=== PATIENT | female | born 1985 | race Caucasian/White ===

== ENCOUNTER 2018-09-28 16:44 | Outpatient (CLI) | payer BC, OTHER ==
--- NOTE | 2018-09-28 17:48 | Non Stress Test Report ---
Non Stress Test Datetime Report Generated by CPN: 09/28/2018 17:48 DEMOGRAPHIC EGA NST: 35.6 INDICATION Indication for Study: Chronic Hypertension MONITORING Monitor Explained: Monitor Explained; Test Explained Time on Monitor: 09/28/2018 16:54 Time off Monitor: 09/28/2018 17:28 NST Duration: 34 NST INTERVENTIONS NST Interventions: PO Hydration Physician Notified NST: Dr. Rosario BABY A: [id number] BABY A Movement : Present Contraction Frequency : None FHR Baseline : 140 Accelerations : 15X15 Decelerations : None Variability : Moderate 6-25bpm NST Review: Meets Criteria for Reactive NST NST Review and Verified By : Clementina Ward RNC NST Results: Reactive NST REPORT Report Trigger: Send Report
== END 2018-09-28 17:35 | disposition home or self-care (01) ==
LOC: LC 16:44
PROVIDERS: ATTEND Obstetrics & Gynecology Gynecology
PROC: 4A1HXCZ Monitoring of Products of Conception, Cardiac Rate, External Approach (ICD-10-PCS; principal; 2018-09-28)
DX: O10.913 Unspecified pre-existing hypertension complicating pregnancy, third trimester (principal); Z3A.35 35 weeks gestation of pregnancy
CPT/HCPCS: 59025

== ENCOUNTER 2018-10-05 15:19 | Inpatient (IN) | payer BC, OTHER ==
--- NOTE | 2018-10-05 15:26 | Non Stress Test Report ---
Non Stress Test Datetime Report Generated by CPN: 10/05/2018 15:26 DEMOGRAPHIC EGA NST: 35.6 INDICATION Indication for Study: Chronic Hypertension MONITORING Monitor Explained: Monitor Explained; Test Explained; Patient Verbalized Understanding Time on Monitor: 09/28/2018 16:54 Time off Monitor: 09/28/2018 17:28 NST Duration: 34 NST INTERVENTIONS NST Interventions: PO Hydration Physician Notified NST: Dr Rosario BABY A: [id number] BABY A Movement : Present Contraction Frequency : denies FHR Baseline : 140 Variability : Moderate 6-25bpm NST Review: Meets Criteria for Reactive NST NST Review and Verified By : B Baidy RN NST Results: Reactive NST REPORT Report Trigger: Send Report
--- NOTE | 2018-10-05 16:25 | Non Stress Test Report ---
Non Stress Test Datetime Report Generated by CPN: 10/05/2018 16:25 DEMOGRAPHIC EGA NST: 36.6 INDICATION Indication for Study: Chronic Hypertension; Ordered by Provider MONITORING Time on Monitor: 10/05/2018 15:30 Time off Monitor: 10/05/2018 16:14 NST Duration: 44 NST INTERVENTIONS NST Interventions: PO Hydration; Reposition Patient Physician Notified NST: P.Hanson, CNM BABY A Movement : Present Contraction Frequency : None FHR Baseline : 135 Accelerations : 15X15 Decelerations : None Variability : Moderate 6-25bpm NST Review: Meets Criteria for Reactive NST NST Review and Verified By : Clarke NinaT Results: Reactive NST REPORT Report Trigger: Send Report
[2018-10-05 16:59] LABS: ABSOLUTE EOSINOPHILS # (AUTO) 0.1 10^3/uL (0.0-0.6); ABSOLUTE LYMPHOCYTES (AUTO) 2.5 10^3/uL (0.5-4.7); ABSOLUTE MONOCYTES (AUTO) 0.7 10^3/uL (0.1-1.4); ABSOLUTE NEUT (AUTO) 7.5 10^3/uL (1.7-8.2); BASOPHILS % (AUTO) 0.3 % (0-2); HEMATOCRIT 37.3 % (36.0-47.0); HEMOGLOBIN 13.1 g/dL (12.0-15.5); LYMPHOCYTES % (AUTO) 23.1 % (13-45); MEAN CORPUSCULAR HEMOGLOBIN 29.9 pg (27.0-33.4); MEAN CORPUSCULAR HGB CONC 35.2 g/dL (32.0-36.0); MEAN CORPUSCULAR VOLUME 85 fl (80-97); MONOCYTES % (AUTO) 6.8 % (3-13); PLATELET COUNT 204 10^3/uL (150-450); RED BLOOD COUNT 4.39 10^6/uL (3.72-5.28); RED CELL DISTRIBUTION WIDTH 13.9 % (11.5-14.0); SEGMENTED NEUTROPHILS % (AUTO) 68.8 % (42-78); TOTAL CELLS COUNTED % (AUTO) 100 %; WHITE BLOOD COUNT 10.9 10^3/uL (4.0-10.5)
[2018-10-05 17:16] LABS: ALANINE AMINOTRANSFERASE 23 U/L (9-52); ALBUMIN 3.5 g/dL (3.5-5.0); ALKALINE PHOSPHATASE 129 U/L (38-126); ANION GAP 8 (5-19); ASPARTATE AMINO TRANSFERASE 26 U/L (14-36); BILIRUBIN,DIRECT 0.2 mg/dL (0.0-0.4); BILIRUBIN,TOTAL 0.4 mg/dL (0.2-1.3); BLOOD UREA NITROGEN 7 mg/dL (7-20); CALCIUM 9.8 mg/dL (8.4-10.2); CARBON DIOXIDE 24 mmol/L (22-30); CHLORIDE 105 mmol/L (98-107); GLUCOSE 95 mg/dL (75-110); POTASSIUM 4.5 mmol/L (3.6-5.0); SODIUM 136.7 mmol/L (137-145); URIC ACID 4.9 mg/dL (2.5-6.2)
[2018-10-05 17:27] LABS: UR PRO/CREAT RATIO RESULT 0.8 mg/mg (0.0-0.2); URINE CREATININE 22.4 mg/dL (16-327); URINE PROTEIN 17.3 mg/dL (<12)
[2018-10-05] MEDS: RINGERS SOLUTION,LACTATED 1,000 ML IV PRN (21:05)
--- NOTE | 2018-10-05 21:10 | Admission Physical ---
Datetime Report Generated by CPN: 10/05/2018 21:10 CURRENT ADMISSION Chief Complaint Other: elevated BP in spite of meds Indication for Induction: Gestational HTN; PreEclampsia Admit Impression : Term, Intrauterine Admit Plan: Admit to Unit; Initiate Labor Induction Protocol ALLERGIES Medication Allergies: No Medication Allergies: No Known Allergies (09/28/2018) Latex: No Latex Allergies Food Allergies: None Environmental Allergies: None OBSTETRICAL HISTORY EDC: 10/27/2018 00:00 : 1 Para: 0 Gestational Diabetes: No Rh Sensitization: No Incompetent Cervix: No CEE: No Infertility: No ART Treatment: No Uterine Anomaly: No IUGR: No Hx Previous C/S: No Macrosomia: No Hx Loss/Stillborn: No PIH: Yes Hx : No Placenta Previa/Abruption: No Depression/PP Depression: Yes PTL/PROM: No Post Hemorrhage: No Current Procedures: Ultrasound; NST Obstetrical History Comments: G1- Current, PIH SEE RECORDS Alcohol: No Marijuana : No Cocaine: No Other Illicit Drugs: No Cigarettes: Never Smoker. 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 Hypothyroidism. Tonsillectomy at age 89 years old. INFECTIOUS HISTORY Gonorrhea: No Genital Herpes: No Chlamydia: No Tuberculosis: No Syphilis: No Hepatitis: No HIV/AIDS Exposure: No Rash or Viral Illness: No HPV: No PHYSICAL EXAM General: Normal HEENT: Normal Neurologic: Normal Thyroid: Normal Heart: Normal Lungs: Normal Breast: Normal Back: Normal Abdomen: Normal Genitourinary Exam: Normal Extremities: Normal DTRs: Normal Pelvic Type: Adequate Vital Signs: Reviewed Details Vital Signs: elavated BP while on Labetalol 300 mg BID VAGINAL EXAM Dilatation: closed MEMBRANES Membranes: Intact FETUS A Monitoring: External US FHR- Baseline: 130-140s Variability: Moderate 6-25bpm Accelerations: 15X15 Admit Comment: Pt had a dx of GHTN and was on Labetalol 300 mg BID. Pt had BPs in L_D of 170's over 100s. She denies HAs, vision chgs and RUQ tenderness. PIH work up showed Pr/Cr ratio 0.8. Since pt will be 37 weeks tomorrow, will initiate labor induction with cervidil. Pt is agreeable to plan. PLANS FOR LABOR AND DELIVERY Pain Management: Natural Feeding Preference: Breast Benefit of Breast Feed Discussed: Yes Circumcision: N/A INFORMED CONSENT Signature: with User ID: [email or web address]
[2018-10-05] MEDS ORDERED: RINGERS SOLUTION,LACTATED 300 ML IV ONE (21:33)
[2018-10-05] MEDS ORDERED: DINOPROSTONE 10 MG VAGINAL INSERT.SR PV ONE (21:33)
[2018-10-05] MEDS ORDERED: ACETAMINOPHEN 325 MG TABLET PO PRN (21:33)
[2018-10-05] MEDS ORDERED: MAG HYDROX/AL HYDROX/SIMETH SUSP 30 ML UDCUP PO PRN (21:33)
[2018-10-05] MEDS ORDERED: ZOLPIDEM TARTRATE 5 MG TABLET PO PRN (21:33)
[2018-10-05] MEDS ORDERED: LABETALOL HCL 200 MG TABLET ONE (21:38)
[2018-10-05] MEDS ORDERED: DINOPROSTONE 10 MG VAGINAL INSERT.SR ONE (22:00)
[2018-10-05] MEDS: LABETALOL HCL 200 MG TABLET PO SCH (22:14)
[2018-10-05] MEDS ORDERED: ZOLPIDEM TARTRATE 5 MG TABLET ONE (23:26)
[2018-10-06 00:27] LABS: URINE AMPHETAMINES SCREEN NEGATIVE; URINE BARBITURATES SCREEN NEGATIVE; URINE BENZODIAZEPINES SCREEN NEGATIVE; URINE COCAINE SCREEN NEGATIVE; URINE MARIJUANA (THC) SCREEN NEGATIVE; URINE METHADONE SCREEN NEGATIVE; URINE PHENCYCLIDINE SCREEN NEGATIVE
[2018-10-06] MEDS: RINGERS SOLUTION,LACTATED 1,000 ML IV PRN (01:44)
[2018-10-06] MEDS ORDERED: LABETALOL HCL 200 MG TABLET ONE ×2 (09:21→21:11)
[2018-10-06] MEDS: LABETALOL HCL 200 MG TABLET PO SCH ×2 (09:23→21:50)
[2018-10-06] MEDS ORDERED: OXYTOCIN 10 UNIT/ML VIAL ONE (11:43)
[2018-10-06] MEDS ORDERED: LIDOCAINE 1% INJ-PF (10 MG/ML) 30 ML SDV ONE (11:43)
[2018-10-06] MEDS ORDERED: MISOPROSTOL 0.2 MG TABLET ONE (11:43)
[2018-10-06] MEDS ORDERED: OXYTOCIN/NORMAL SALINE 20 UNIT/1,000 ML RTUINJ ONE (11:43)
[2018-10-06] MEDS ORDERED: MISOPROSTOL 0.1 MG TABLET ONE (12:09)
--- NOTE | 2018-10-06 12:22 | L&D Progress Notes ---
PROGRESS NOTES Datetime Report Generated by CPN: 10/06/2018 12:22 PROGRESS NOTE Impression: Reassuring Heart Rate Impression Other: CHTN Procedures: Sterile Vag Exam Procedures- Other: Cytotec placed Plan: Induction Vital Signs : Reviewed Comment: s/p Cervidil overnight, pt doing well, did eat breakfast. Denies headache. VE /50/-1 still very posterior. Plan to continue with cervical ripening and IOL due to mild Pre-eclampsia. GBS +, needs PCN when in labor. Dr Rosario attending and agrees w/ plan of care VAGINAL EXAM Dilatation: 1 Dilatation: closed Effacement: 50 Station: -1 Contractions: rare LAST VAGINAL EXAM-NURSING Dilitation: 1.0 Dilitation: cl Effacement: 50 Effacement: th Station: -1 Station: hi MEMBRANES Membranes: Intact Membranes: Intact FETUS A FHR - Baseline: 145 Monitoring: External US Variability: Moderate 6-25bpm Accelerations: 15X15 Decelerations: None FHR Category: Category I : 36.6 SIGNATURE SIGNATURE: [id number];[id number];13,[id number] SIGNATURE: [id number];14,[id number] SIGNATURE: [id number] SIGNATURE: 14,[id number] SIGNATURE: 14,[id number] Assignment: Star Rosario MD Signature: with User ID: [email or web address] : with User ID: [email or web address]
--- NOTE | 2018-10-06 14:17 | L&D Progress Notes ---
PROGRESS NOTES Datetime Report Generated by CPN: 10/06/2018 14:17 PROGRESS NOTE Impression Other: +herpes labialis, cold sore present Plan: Continue Present Management Plan Other: tx w/ Valacyclovir Vital Signs : Reviewed Comment: Pt has a cold sore on her bottom lip, States she meant to spanish moss picker her Valtrex prescription last night, but did not get to. Denies HSV lesion in the vaginal area. No lesions noted per visual inspection of the vagina. Will treat the Herpes Labialis w/ Valacyclovir. FETUS C SIGNATURE: [id number];14,[id number];10,[id number] Assignment: Star Rosario MD Signature: with User ID: [email or web address] : with User ID: [email or web address]
[2018-10-06] MEDS ORDERED: DINOPROSTONE 10 MG VAGINAL INSERT.SR PV PRN (15:32)
[2018-10-06] MEDS ORDERED: PENICILLIN G POTASSIUM 5,000,000 UNIT in DEXTROSE 5%-WATER 100 ML IV ONE (16:08)
[2018-10-06] MEDS ORDERED: DINOPROSTONE 10 MG VAGINAL INSERT.SR ONE (16:31)
--- NOTE | 2018-10-06 16:42 | L&D Progress Notes ---
PROGRESS NOTES Datetime Report Generated by CPN: 10/06/2018 16:42 PROGRESS NOTE Impression: Reassuring Heart Rate Procedures: Sterile Vag Exam Procedures- Other: Cervidil placed Plan: Continue Present Management; Induction Plan Other: Start PCN when in active labor Vital Signs : Reviewed Comment: IOL for CHTN, s/p PO and vaginal Cytotec this morning. Pt doing well, no complaints. GBS+. VE 50-1, now anterior. Cervidil 2nd dose placed. Plan to start PCN when in labor or SROM. Dr Rosario attending MD, agrees w/ plan VAGINAL EXAM Dilatation: 1 Effacement: 50 Station: -1 Dilitation: 1.0 Effacement: 50 Station: -1 MEMBRANES Membranes: Intact FETUS A FHR - Baseline: 140 Monitoring: External US Variability: Moderate 6-25bpm Accelerations: 15X15 Decelerations: None FETUS C SIGNATURE: [id number];14,[id number];13,[id number] Assignment: Star Rosario, MD Signature: with User ID: [email or web address] : with User ID: [email or web address]
[2018-10-06] MEDS: MISOPROSTOL 0.1 MG TABLET PV SCH (20:51)
[2018-10-06] MEDS: MISOPROSTOL 0.1 MG TABLET PO SCH (20:51)
[2018-10-07] MEDS ORDERED: RINGERS SOLUTION,LACTATED 1,000 ML IV PRN (00:12)
[2018-10-07] MEDS ORDERED: OXYTOCIN/NORMAL SALINE 20 UNIT/1,000 ML RTUINJ IV PRN ×2 (00:15→17:46)
[2018-10-07] MEDS: RINGERS SOLUTION,LACTATED 1,000 ML IV PRN ×2 (01:48→13:45)
[2018-10-07] MEDS ORDERED: OXYTOCIN/NORMAL SALINE 0 UNIT/0 ML RTUINJ ONE (04:53)
[2018-10-07] MEDS ORDERED: PENICILLIN G-K 5 MILLION UNIT VIAL ONE ×3 (04:53→14:01)
[2018-10-07] MEDS: MISOPROSTOL 0.1 MG TABLET PO SCH (07:52)
[2018-10-07] MEDS: MISOPROSTOL 0.1 MG TABLET PV SCH (07:52)
[2018-10-07] MEDS ORDERED: HYDRALAZINE HCL INJ/PF 20 MG/1 ML SDV ONE ×2 (08:12→14:38)
[2018-10-07] MEDS ORDERED: HYDRALAZINE HCL INJ/PF 20 MG/1 ML SDV IV ONE ×2 (08:16→14:44)
[2018-10-07] MEDS: PENICILLIN G POTASSIUM 2,500,000 UNIT in DEXTROSE 5%-WATER 50 ML IV SCH ×2 (09:45→14:06)
[2018-10-07] MEDS ORDERED: LABETALOL HCL 200 MG TABLET ONE (10:06)
[2018-10-07] MEDS: LABETALOL HCL 200 MG TABLET PO SCH ×2 (10:06→22:50)
[2018-10-07] MEDS ORDERED: DIPHENHYDRAMINE HCL 25 MG CAPSULE PO PRN (17:46)
[2018-10-07] MEDS ORDERED: PROMETHAZINE HCL 25 MG SUPP.RECT PR PRN (17:46)
[2018-10-07] MEDS ORDERED: PROMETHAZINE HCL 25 MG TABLET PO PRN (17:46)
[2018-10-07] MEDS ORDERED: PSEUDOEPHEDRINE HCL 30 MG TABLET PO PRN (17:46)
[2018-10-07] MEDS ORDERED: NA PHOS,M-B/NA PHOS,DI-BA (ADULT) 133 ML ENEMA PR PRN (17:46)
[2018-10-07] MEDS ORDERED: GLYCERIN/WITCH HAZEL LEAF 1 EACH MED..PAD TP PRN (17:46)
[2018-10-07] MEDS ORDERED: DIBUCAINE 1% OINTMENT 28 GM TP PRN (17:46)
[2018-10-07] MEDS ORDERED: BENZOCAINE/MENTHOL AEROSOL SPRAY 56 ML TOP PRN (17:46)
[2018-10-07] MEDS ORDERED: PROMETHAZINE HCL INJ 25 MG/1 ML VIAL IV PRN (17:46)
[2018-10-07] MEDS ORDERED: DIPH/PERTUSS(ACELL)/TETANUS VAC/PF 0.5 ML SYR (>=10YO) IM PRN (17:46)
[2018-10-07] MEDS ORDERED: ACETAMINOPHEN 650 MG SUPP.RECT PR PRN (17:46)
[2018-10-07] MEDS ORDERED: ACETAMINOPHEN WITH CODEINE #3 TABLET PO PRN ×2 (17:46)
[2018-10-07] MEDS ORDERED: MAGNESIUM HYDROXIDE SUSP 30 ML UDCUP PO PRN (17:46)
[2018-10-07] MEDS ORDERED: ZOLPIDEM TARTRATE 5 MG TABLET PO PRN (17:46)
[2018-10-07] MEDS ORDERED: MEASLES,MUMPS&RUBELLA VACC/PF 0.5 ML VIAL SUBCUT PRN (17:46)
[2018-10-07] MEDS ORDERED: IBUPROFEN 800 MG TABLET ONE (17:55)
[2018-10-07] MEDS ORDERED: NIFEDIPINE 30 MG TAB.ER.24 PO ONE ×2 (19:12→20:00)
--- NOTE | 2018-10-07 19:34 | Delivery Summary ---
Del Sum A-C Datetime Report Generated by CPN: 10/07/2018 19:33 DELIVERY PERSONNEL DELIVERY PERSONNEL: [id number] Delivery Doctor:: Alicia Ortega MD Labor and Delivery Nurse:: Marzena Serra RNart editor Nurse:: Flora Horne RN Exerciser/EXPERIENCE DESIGNER: Paola Stinsona, ST MATERNAL INFORMATION Delivery Anesthesia: None Medications After Delivery: Pitocin Drip 20 Units/1000ml NSS Estimated Blood Loss (ml): 300 Maternal Complications: None LABOR SUMMARY EDC: 10/27/2018 00:00 No. Babies in Womb: 1 Attempted: No Labor Anesthesia: None LABOR INFORMATION Reason for Induction: Chronic Primary/Essential HTN Onset of Labor: 10/07/2018 05:45 Complete Dilatation: 10/07/2018 17:25 Cervical Ripening Agents: Cervidil Oxytocin: Induction Group B Beta Strep: Positive Antibiotics # of Doses: 3 Antibiotics Time of Last Dose: 1405 Name of Antibiotic Given: Penicillin Steroids Given: None Reason Steroids Not Administered: Not Applicable MEMBRANES Membranes Rupture Method: Artificial Rupture of Membranes: 10/07/2018 17:30 Length of Rupture (hr): 0.07 Amniotic Fluid Color: Clear Amniotic Fluid Amount: Small Amniotic Fluid Odor: Normal STAGES OF LABOR Stage 1 hr: 11 Stage 1 min: 40 Stage 2 hr: 0 Stage 2 min: 9 Stage 3 hr: 0 Stage 3 min: 5 Total Time in Labor hr: 11 Total Time in Labor min: 54 VAGINAL DELIVERY Episiotomy: None Laceration #1: None Laceration Extension #1: N/A Laceration Repair: Not Applicable Sponge Count Correct: Yes Sharps Count Correct: Yes CSECTION DELIVERY Primary Indication: N/A Secondary Indication: N/A CSection Incidence: N/A Labor: N/A Elective: N/A CSection Incision: N/A BABY A INFORMATION Delivery Date/Time: 10/07/2018 17:34 Method of Delivery: Vaginal Born in Route : No : N/A Forceps: N/A Vacuum Extraction: N/A Shoulder Dystocia : No PRESENTATION/POSITION BABY A Presentation: Cephalic Cephalic Presentation: Vertex Vertex Position: Right Occipital Anterior Breech Presentation: N/A PLACENTA INFORMATION BABY A Placenta Delivery Time : 10/07/2018 17:39 Placenta Method of Delivery: Spontaneous Placenta Status: Delivered SCORES BABY A Heart Rate 1 min: >100 bpm Resp Effort 1 min: Good Cry Reflex Irritability 1 min: Cough or Sneeze or Pulls Away Muscle Tone 1 min: Active Motion Color 1 min: Blue/Pale Resuscitation Effort 1 min: Tactile Stimulation SCORE 1 MIN: 8 Heart Rate 5 min: >100 bpm Resp Effort 5 min: Good Cry Reflex Irritability 5 min: Cough or Sneeze or Pulls Away Muscle Tone 5 min: Active Motion Color 5 min: Body Lambert, Extremities Blue Resuscitation Effort 5 min: Tactile Stimulation SCORE 5 MIN: 9 INFANT INFORMATION BABY A Gestational Age at Delivery: 37.1 Gestational Status: Early Term- 37- 38.6 Weeks Outcome : Liveborn Infant Condition : Stable Sex: Female IDENTIFICATION BABY A Infant Verification Date/Time: 10/07/2018 17:45 ID Band Number: [id number] Mother's Name Verified: Yes RN Verifying Infant: D Adan HYPOID GEAR TESTER/D Bellavance RN WEIGHT/LENGTH BABY A Infant Birthweight (gm): 2463 Infant Weight (lb): 5 Infant Weight (oz): 7 Length (in): 18.50 Length (cm): 46.99 CORD INFORMATION BABY A No. Cord Vessels: 3 Nuchal Cord : N/A Cord Blood Taken: Yes-For Storage (Mom's Blood type +) Infant Suction: Mouth ASSESSMENT BABY A Skin to Skin: Yes Skin to Skin Time (min): 100 BABY B INFORMATION : N/A SIGNATURES Signature: with User ID: [email or web address]
[2018-10-07] MEDS: FAMOTIDINE 20 MG TABLET PO SCH (22:50)
[2018-10-08] MEDS: FERROUS SULFATE 325 MG TABLET PO SCH ×3 (06:45→17:21)
[2018-10-08] MEDS: IBUPROFEN 800 MG TABLET PO SCH ×4 (06:45→22:46)
[2018-10-08] MEDS: PENICILLIN G POTASSIUM 2,500,000 UNIT in DEXTROSE 5%-WATER 50 ML IV SCH ×2 (06:45→06:52)
[2018-10-08] MEDS: DOCUSATE SODIUM 100 MG CAPSULE PO SCH ×3 (06:45→17:21)
[2018-10-08 08:01] LABS: HEMATOCRIT 33.8 % (36.0-47.0); HEMOGLOBIN 11.7 g/dL (12.0-15.5); MEAN CORPUSCULAR HEMOGLOBIN 29.4 pg (27.0-33.4); MEAN CORPUSCULAR HGB CONC 34.6 g/dL (32.0-36.0); MEAN CORPUSCULAR VOLUME 85 fl (80-97); PLATELET COUNT 192 10^3/uL (150-450); RED BLOOD COUNT 3.98 10^6/uL (3.72-5.28); RED CELL DISTRIBUTION WIDTH 13.8 % (11.5-14.0)
[2018-10-08] MEDS: PRENATAL VITAMIN W DHA CAPSULE PO SCH (09:48)
[2018-10-08] MEDS: NIFEDIPINE 30 MG TAB.ER.24 PO SCH (09:48)
[2018-10-08] MEDS: SENNOSIDES/DOCUSATE 8.6-50 MG 1 EACH TABLET PO SCH (09:48)
[2018-10-08] MEDS: LABETALOL HCL 200 MG TABLET PO SCH ×2 (09:49→22:45)
[2018-10-08] MEDS: FAMOTIDINE 20 MG TABLET PO SCH ×2 (09:49→22:45)
--- NOTE | 2018-10-08 10:24 | PDOC PROGRESS REPORT ---
Subjective-OB Progress Note for:: 10/08/18 - PP Day #1, doing well, , denies headache. Physical Exam (OB) Vital Signs: Temp Pulse Resp BP Pulse Ox 98.0 F 116 H 14 139/95 H 99 10/08/18 09:11 10/08/18 09:11 10/08/18 09:11 10/08/18 09:11 10/08/18 09:11 Intake & Output 10/07/18 10/08/18 10/09/18 06:59 06:59 06:59 Intake Total 1100 2100 Balance 1100 2100 - General General Appearance: Appears well, Alert In distress: None - PIH/Pre-Eclampsia DTR's: 1 + Clonus: Negative Headache: Absent Epigastric Pain: No Visual Changes: No - Lochia Lochia Amount: Small 10-25 ml Lochia Color: Rubra/Red - Abdomen Description: Soft, Round Hernia Present: No Fundal Description: Firm, Midline Fundal Height: u/u - u/2 - Respiratory Respiratory Status: No respiratory distress - Abdominal Inspection: Normal Distension: No distension - Genitourinary Genitourinary Note: voiding - Neurological Cognition: Normal Orientation: AAOx4 - Psychological Associated symptoms: Normal affect, Normal mood - Skin Skin Temperature: Warm Skin Moisture: Dry Objective-Diagnostic Laboratory: 10/08/18 07:39 10/05/18 16:30 10/08/18 07:39 WBC 14.0 H RBC 3.98 Hgb 11.7 L Hct 33.8 L MCV 85 MCH 29.4 MCHC 34.6 RDW 13.8 Plt Count 192 Assessment and Plan(PN) - Assessment and Plan (1) Pre-eclampsia added to pre-existing hypertension Is this a current diagnosis for this admission?: Yes (2) (normal spontaneous vaginal delivery) Is this a current diagnosis for this admission?: Yes (3) normal course Is this a current diagnosis for this admission?: Yes - Time Spent with Patient Time with patient: Less than 15 minutes Medications reviewed and adjusted accordingly: Yes - Disposition Anticipated Discharge: Home Within: within 24 hours
[2018-10-09] MEDS: IBUPROFEN 800 MG TABLET PO SCH ×2 (06:15→14:58)
[2018-10-09] MEDS: LABETALOL HCL 200 MG TABLET PO SCH (09:47)
[2018-10-09] MEDS: FAMOTIDINE 20 MG TABLET PO SCH (09:48)
[2018-10-09] MEDS: NIFEDIPINE 30 MG TAB.ER.24 PO SCH (09:48)
[2018-10-09] MEDS: FERROUS SULFATE 325 MG TABLET PO SCH (09:48)
[2018-10-09] MEDS: PRENATAL VITAMIN W DHA CAPSULE PO SCH (09:48)
[2018-10-09] MEDS: SENNOSIDES/DOCUSATE 8.6-50 MG 1 EACH TABLET PO SCH (09:48)
[2018-10-09] MEDS: DOCUSATE SODIUM 100 MG CAPSULE PO SCH (09:49)
--- NOTE | 2018-10-09 09:52 | PDOC DISCHARGE SUMMARY ---
Final Diagnosis Discharge Date: 10/09/18 - Final Diagnosis (1) (normal spontaneous vaginal delivery) Is this a current diagnosis for this admission?: Yes (2) normal course Is this a current diagnosis for this admission?: Yes (3) Pre-eclampsia added to pre-existing hypertension Is this a current diagnosis for this admission?: Yes Discharge Data - Discharge Medication Home Medications: Labetalol HCl 100 mg PO BID 09/28/18 Vit,Calc76/Iron/Folic [Prenatabs Rx Tablet] 1 each PO DAILY 09/28/18 Ranitidine HCl [Zantac 75 mg Tablet] 1 tab PO PRN PRN 09/28/18 Reason(s) for Admission: Induction of Labor, PIH Procedures: NST Intrapartum Procedure(s): Spontaneous Vaginal Delivery - Diagnosis Test Laboratory: Temp Pulse Resp BP Pulse Ox 98.2 F 89 16 143/82 H 98 10/09/18 07:33 10/09/18 07:33 10/09/18 07:33 10/09/18 07:33 10/09/18 07:33 10/05/18 10/05/18 10/08/18 16:30 16:42 07:39 RBC 4.39 3.98 Hgb 13.1 11.7 L Hct 37.3 33.8 L Urine Opiates Screen NEGATIVE - Discharge information/Instructions Discharge Activity: Balance Activity w/Rest, Pelvic Rest, Slowly Increase Activity Discharge Diet: Regular Disposition: HOME, SELF-CARE Follow up with: [facility] in: 1, Weeks
[2018-10-09 13:34] VITALS: BP 152/86
== END 2018-10-09 17:16 | disposition home or self-care (01) | DRG 806 ==
LOC: LC 15:19 → LR 18:17 → 2S 10-07 19:56
PROVIDERS: ADMIT Obstetrics & Gynecology; ATTEND Obstetrics & Gynecology
PROC: 4A1HXCZ Monitoring of Products of Conception, Cardiac Rate, External Approach (ICD-10-PCS; 2018-10-05)
PROC: 3E0P7VZ Introduction of Hormone into Female Reproductive, Via Natural or Artificial Opening (ICD-10-PCS; 2018-10-06)
PROC: 10E0XZZ Delivery of Products of Conception, External Approach (ICD-10-PCS; principal; 2018-10-07)
PROC: 10907ZC Drainage of Amniotic Fluid, Therapeutic from Products of Conception, Via Natural or Artificial Opening (ICD-10-PCS; 2018-10-07)
DX: O11.4 Pre-existing hypertension with pre-eclampsia, complicating childbirth (principal); O98.52 Other viral diseases complicating childbirth; Z37.0 Single live birth; O10.92 Unspecified pre-existing hypertension complicating childbirth; B00.1 Herpesviral vesicular dermatitis; O99.824 Streptococcus B carrier state complicating childbirth; Z3A.37 37 weeks gestation of pregnancy
CPT/HCPCS: 36415; 80053; 80307; 82570; 83615; 84156; 84550; 85025; 85027; 86592; 86850; 86900; 86901; 94760; C1726; J0360; J2540; J2590; J3490

== ENCOUNTER 2020-05-14 05:36 | Day surgery (SDC) | payer BC, OTHER ==
[2020-05-09 09:31] LABS: HEMATOCRIT 42.4 % (36.0-47.0); HEMOGLOBIN 14.7 g/dL (12.0-15.5); MEAN CORPUSCULAR HEMOGLOBIN 28.4 pg (27.0-33.4); MEAN CORPUSCULAR HGB CONC 34.8 g/dL (32.0-36.0); MEAN CORPUSCULAR VOLUME 82 fl (80-97); PLATELET COUNT 240 10^3/uL (150-450); RED BLOOD COUNT 5.18 10^6/uL (3.72-5.28); RED CELL DISTRIBUTION WIDTH 13.4 % (11.5-14.0); WHITE BLOOD COUNT 7.7 10^3/uL (4.0-10.5)
[2020-05-09 09:57] LABS: ANION GAP 10 (5-19); BLOOD UREA NITROGEN 14 mg/dL (7-20); CALCIUM 9.6 mg/dL (8.4-10.2); CARBON DIOXIDE 26 mmol/L (22-30); CHLORIDE 103 mmol/L (98-107); GLUCOSE 89 mg/dL (75-110); POTASSIUM 4.4 mmol/L (3.6-5.0)
[~2020-05-14 05:36] MED LIST: CEFAZOLIN 1 GM/D5W RTU 1 GM/50 ML RTUPB IV ONE; CEFAZOLIN 1 GM/D5W RTU 1 GM/50 ML RTUPB IV PRN; LACTATED RINGERS 1000 ML IV PRN
[2020-05-14] MEDS ORDERED: HYDROMORPHONE HCL INJ/PF 2 MG/ML AMPULE ONE (06:47)
[2020-05-14] MEDS ORDERED: LIDOCAINE 2% INJ-PF (20 MG/ML) 10 ML AMPUL ONE (06:47)
[2020-05-14] MEDS ORDERED: PROPOFOL INJ 200 MG/20 ML VIAL IV ONE (06:47)
[2020-05-14] MEDS ORDERED: FENTANYL CITRATE INJ/PF 250 MCG/5 ML AMPULE ONE (06:47)
[2020-05-14] MEDS ORDERED: MIDAZOLAM 2 MG/2 ML INJ ONE (06:55)
[2020-05-14] MEDS ORDERED: MICROFIBRILLAR COLLAGEN 1 GM PACK ONE (07:14)
[2020-05-14] MEDS ORDERED: DIPHENHYDRAMINE HCL 50 MG/ML VIAL IV PRN (08:09)
[2020-05-14] MEDS ORDERED: PROMETHAZINE HCL INJ 25 MG/1 ML VIAL IV PRN ×2 (08:09)
[2020-05-14] MEDS ORDERED: MEPERIDINE HCL/PF INJ 25 MG/1 ML DISP.SYRIN IV PRN (08:09)
[2020-05-14] MEDS ORDERED: FENTANYL CITRATE INJ/PF 100 MCG/2 ML AMPUL IV PRN ×3 (08:09)
[2020-05-14] MEDS ORDERED: ONDANSETRON HCL INJ/PF 4 MG/2 ML SDV IV PRN ×2 (08:09→11:53)
[2020-05-14] MEDS ORDERED: HYDROMORPHONE HCL INJ/PF 2 MG/ML AMPULE IV PRN (08:10)
[2020-05-14] MEDS ORDERED: NORMAL SALINE 1000 ML 1,000 ML IV PRN (11:25)
[2020-05-14] MEDS ORDERED: OXYCODONE-ACETAMINOPHEN 5-325 MG TABLET PO PRN (11:25)
--- NOTE | 2020-05-14 11:52 | Operative Report ---
Operative Report DATE OF SURGERY: 05/14/20 PREOPERATIVE DIAGNOSIS: 1. 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 2. Natalia's thyroiditis POSTOPERATIVE DIAGNOSIS: Same OPERATION: Total thyroidectomy with isthmusectomy; extremely difficult modifier SURGEON: XIOMARA BRIGGS 1ST [employer] HE[employer]IN[employer] ATTENDANT: JERMAN LOAIZA ANESTHESIA: GA TISSUE REMOVED OR ALTERED: Right thyroid lobe; left thyroid lobe COMPLICATIONS: None ESTIMATED BLOOD LOSS: 125 cc INTRAOPERATIVE FINDINGS: See below PROCEDURE: The patient was taken the preop holding her to the main operating room where general anesthesia was induced. Arms were tucked, neck placed in hyperextension position, intrascapular support provided for optimal exposure of the anterior neck. The anterior neck was prepped and draped sterile fashion Surgical plan and surgical timeout were conducted. The patient's neck was previously marked in the preop holding area by Dr. Briggs for planned transcervical incision. The marking was in a dominant skin crease proximately 2 cm below the cricoid notch. The skin was re-marked, then the neck incised with a #10 blade for the length of approximately 6-1/2 to 7 cm. Superior and inferior skin flaps were raised with electrocautery. Strap muscles were divided midline with electrocautery. We approached the right thyroid lobe first as this side at the target nodule suspicious for follicular neoplasm based on previous FNA. The sterno hyoid and eventually the sternothyroid muscles were elevated off the anterior surface of the thyroid gland. The findings were immediately consistent with Natalia's thyroiditis as there was a layer of fine fibrosis to the true thyroid capsule. We worked into circumferential fashion to elevate the undersurface of the sterno thyroid muscle off of the superior end of the gland which was stuck due to fibrosis. Therefore a portion of the sternothyroid muscle was divided high up towards the thyroid cartilage electrocautery. Using Steven clamps placed into the substance of the lobe, the lobe was retracted medially, and we began taking down the inferior pole between clips and periodic judicious use of electrocautery at low strength. The right inferior parathyroid gland was felt to be visualized and preserved in its jamul compartment. The isthmus was divided with electrocautery. The posterior surface of the thyroid lobe was densely adhesed to the trachea throughout its entire anatomic points of attachment. We now turned our attention to the superior pole. It was densely adhesed again to the sterno- thyroid muscle. Dissection was tedious we the superior pole parenchyma from the strap muscles. There was a pedunculated projection of thyroid parenchyma extending right into the thyroid cartilage, similar in configuration to a pyramidal lobe but was lateral and not in the midline. We le ft approximately 1 cm of thyroid parenchyma attached to the right thyroid cartilage with a clip at the point of transection. The superior thyroid vessels were taken right on gland with clips. We worked in a circumferential fashion freeing up the thyroid gland superiorly and inferiorly. Laterally we opened up the adventitia which fortunately was less dense, and could see the inferior thyroid artery with its arborization, and the right recurrent laryngeal nerve, in its classic location coming from laterally to medially. The nerve was maintained in our visual field throughout the remainder of the dissection on the right side of the neck. The right lobe was eventually freed up from the trachea again requiring tedious dissection approximately 2 hours in fact on the right side of the neck. We took the inferior thyroid artery and its branch points. The right upper parathyroid gland was not dissected free, and was felt to be in a small surrounding shroud of fatty tissue adjacent to the cricoid muscle. Actually the lobe was completely dissected free, all clips removed, and the lobe marked with a long suture in the lateral position, short in the superior position. It was examined fresh by Dr. Diehl, pathologist, who felt the specimen contained the dominant nodule, with clear margins. No parathyroid tissue was identified time. Turned to the neck carefully checking for any mec hanical bleeding there was none. We now approached the left lobe. Fortunately the strap muscles came off of the anterior surface of the thyroid lobe much more easily. The inferior pole was taken down between clips, with the left inferior parathyroid gland visualized and taken off of the anterior inferior surface of the inferior pole with electrocautery and clips. The left superior pole also came away from the muscles much easier on the left side. The superior pole vessels were taken between clips and the pole easily released. The flow came off of the trachea with some degree of difficulty due to the Natalia's inflammatory changes. There was rather generous arborization of the inferior thyroid artery which generated some bothersome bleeding but this was controlled with clips. The left recurrent laryngeal nerve was visualized in a symmetric location to the right side and was maintained visual field throughout the dissection. The left upper parathyroid gland was not definitivel y visualized. The lobe was completely mobilized off of the trachea, and final attachments were taken down with clips. A negligible 2 x 2 mm portion of thyroid parenchyma was left right on the anterior lateral trachea. The specimen was removed, all clips removed from the specimen, sutures long lateral and short superior placed in the tissue for orientation. It was sent to pathology and Dr. Diehl reviewed and found to contain no dominant nodules. Avitene was placed in the recesses of both sides of the neck after we confirmed hemostasis. Sponge and needle counts were correct. We felt the operation was complete. Patient remained hemodynamically stable throughout the operation. The patient's neck was taken out of extension, strap muscles closed with 2-0 Vicryl and platysma closed with 3-0 Vicryl and skin glue. The physician timber management assistant, Ms. Montalvo, provided assistance during this case by: Assisting retracting tissue, clip placement under direct supervision, instillation of local anesthesia and closure of skin incisions, and application of skin glue. Synoptic report summary: On the right side the superior and inferior parathyroid glands were felt to be visualized and preserved at the dissection. The right recurrent laryngeal nerve was also visualized in its classic location, and preserved throughout the dissection. On the left side the inferior parathyroid gland was felt to be visualized and preserved, however the left upper parathyroid gland was not definitively identified. The left recurrent laryngeal nerve was visualized in its classic location and preserved throughout the dissection of the left lobe. The extremely difficult modifier was used because of the increased time, physical energy, concentration and visual acuity required to remove this gland from this patient's neck due to the dense fibrotic pathology associated with Natalia's thyroiditis. The right lobe took approximately 2 hours in the left lobe 1-1/2 hours.
[2020-05-14] MEDS ORDERED: NEOSTIGMINE METHYLSULFATE 10 MG/10 ML VIAL ONE (13:16)
[2020-05-14] MEDS ORDERED: DEXAMETHASONE SOD PHOSPHATE INJ 4 MG/1 ML VIAL ONE (13:16)
[2020-05-14] MEDS ORDERED: ROCURONIUM BROMIDE INJ 50 MG/5 ML VIAL IV ONE (13:16)
[2020-05-14] MEDS ORDERED: GLYCOPYRROLATE 1 MG/5 ML VIAL ONE (13:16)
[2020-05-14] MEDS ORDERED: SUCCINYLCHOLINE CHLORIDE INJ 200 MG/10 ML VIAL ONE (13:16)
[2020-05-14] MEDS ORDERED: ONDANSETRON HCL INJ/PF 4 MG/2 ML SDV ONE (13:16)
[2020-05-14] MEDS ORDERED: KETOROLAC TROMETHAMINE INJ/PF 30 MG/1 ML SDV IV SCH (18:00)
[2020-05-14] MEDS: ACETAMINOPHEN INJ/PF 1000 MG/100 ML SDV IV SCH ×2 (18:07→23:19)
[2020-05-14] MEDS: DOCUSATE SODIUM 100 MG CAPSULE PO SCH (18:16)
[2020-05-15] MEDS ORDERED: LEVOTHYROXINE SODIUM 0.025 MG TABLET PO SCH (06:00)
[2020-05-15] MEDS: ACETAMINOPHEN INJ/PF 1000 MG/100 ML SDV IV SCH (06:10)
[2020-05-15 09:22] VITALS: BP 145/99
--- NOTE | 2020-05-15 09:26 | PDOC DISCHARGE SUMMARY ---
General - Admit/Disc Date/PCP Admission Date/Primary Care Provider: IRMA PLASCENCIA MD Discharge Date: 05/15/20 - Discharge Diagnosis Final Diagnosis: 1. Natalia's thyroiditis 2. 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 Patient taken to the operating room for ambulatory surgery where she underwent total thyroidectomy with isthmusectomy by Dr. Briggs. She tolerated the operation well. Preoperatively she had excellent pain control, and good vocal function with only minimal gravelly voice which improved for 18 hours. Her calcium levels went from 9.6 to 8.4 and plateaued. By the following morning she was doing well and ready for discharge home. Patiently discharged to care for family follow-up with Dr. Briggs in a week to week and a half, take Synthroid 150 mcg p.o. daily, Toradol as needed pain, and 1 g of calcium twice daily. She will have a calcium level checked day prior to her office appointment. - Additional Information Resuscitation Status: Full Code Discharge Diet: As Tolerated Discharge Activity: Other - No heavy lifting pulling pushing Referrals: IRMA PLASCENCIA MD [Primary Care Provider] - 05/22/20 10:45 am XIOMARA BRIGGS MD [ACTIVE STAFF] - 05/27/20 10:45 am Home Medications: Vit,Calc76/Iron/Folic [Prenatabs Rx Tablet] 1 each PO HSP PRN 09/28/18 Amlodipine Besylate [Norvasc 10 mg Tablet] 10 mg PO HSP PRN 05/09/20 Levothyroxine Sodium [Synthroid 0.025 mg Tablet] 25 mcg PO DAILY 05/09/20 History of Present Illiness History of Present Illness: KAROLYN STORM is a 34 year old female Physical Exam Vital Signs: Temp Pulse Resp BP Pulse Ox 98.6 F 97 20 145/99 H 99 05/15/20 08:50 05/15/20 08:00 05/15/20 08:00 05/15/20 08:00 05/15/20 08:00 Intake & Output 05/14/20 05/15/20 05/16/20 06:59 06:59 06:59 Intake Total 0 2740 Output Total 1030 Balance 0 1710 Weight 124 kg 123.8 kg Results Laboratory Results: WBC 7.7 10^3/uL (4.0-10.5) 05/09/20 08:39 RBC 5.18 10^6/uL (3.72-5.28) 05/09/20 08:39 Hgb 14.7 g/dL (12.0-15.5) 05/09/20 08:39 Hct 42.4 % (36.0-47.0) 05/09/20 08:39 MCV 82 fl (80-97) 05/09/20 08:39 MCH 28.4 pg (27.0-33.4) 05/09/20 08:39 MCHC 34.8 g/dL (32.0-36.0) 05/09/20 08:39 RDW 13.4 % (11.5-14.0) 05/09/20 08:39 Plt Count 240 10^3/uL (150-450) 05/09/20 08:39 Sodium 139.2 mmol/L (137-145) 05/09/20 08:39 Potassium 4.4 mmol/L (3.6-5.0) 05/09/20 08:39 Chloride 103 mmol/L (98-107) 05/09/20 08:39 Carbon Dioxide 26 mmol/L (22-30) 05/09/20 08:39 Anion Gap 10 (5-19) 05/09/20 08:39 BUN 14 mg/dL (7-20) 05/09/20 08:39 Creatinine 0.69 mg/dL (0.52-1.25) 05/09/20 08:39 Est GFR ( Amer) > 60 (>60) 05/09/20 08:39 Est GFR (MDRD) Non-Af > 60 (>60) 05/09/20 08:39 Glucose 89 mg/dL (75-110) 05/09/20 08:39 Calcium 8.4 mg/dL (8.4-10.2) 05/15/20 06:15 Urine HCG, Qual NEGATIVE (NEGATIVE) 05/14/20 05:40 COVID-19 Source NASOPHARYNGEAL 05/09/20 08:34 COVID-19 (MAGALYS) NOT DETECTED 05/09/20 08:34
[2020-05-15] MEDS ORDERED: LEVOTHYROXINE SODIUM 0.15 MG TABLET PO SCH (10:00)
[2020-05-15] MEDS ORDERED: AMLODIPINE BESYLATE 10 MG TABLET PO SCH (10:00)
[2020-05-15] MEDS ORDERED: PRENATAL VITAMIN W DHA CAPSULE PO SCH (10:00)
[2020-05-15] MEDS ORDERED: LEVOTHYROXINE SODIUM 0.05 MG TABLET PO ONE (10:15)
[2020-05-15] MEDS: DOCUSATE SODIUM 100 MG CAPSULE PO SCH (10:26)
== END 2020-05-15 10:35 | disposition home or self-care (01) ==
LOC: OROUT 05:36 → 4W 12:38 → OROUT 05-15 10:35
PROVIDERS: ATTEND Surgery
DX: E06.3 Autoimmune thyroiditis (principal); E04.2 Nontoxic multinodular goiter; Z03.818 Encounter for observation for suspected exposure to other biological agents ruled out; I10 Essential (primary) hypertension
CPT/HCPCS: 36415 ×2; 82310; 85027; 81025; 80048; 88307 ×2; 94799; 00320; 60240; U0003; J2250; J0690; J3490 ×4; J1100; J3010; J2710; J1170; J0330; J2405; J7120; J2704; J0131 ×2; C9803; 320; 87635

== ENCOUNTER → 2020-05-23 | Outpatient (CLI) | payer BC, OTHER | LOC: OD 09:45 | PROVIDERS: ATTEND Physician Assistant Surgical | DX: E89.0 Postprocedural hypothyroidism (principal) | CPT/HCPCS: 36415; 82310 ==

== ENCOUNTER → 2020-06-23 | Outpatient (CLI) | payer BC, OTHER ==
[2020-06-23 17:15] LABS: FREE T3 4.25 pg/mL (2.77-5.27); FREE T4 (FREE THYROXINE) 1.56 ng/dL (0.78-2.19)
[2020-06-23 17:29] LABS: THYROID STIMULATING HORMONE 0.53 uIU/mL (0.47-4.68)
== END ==
LOC: OD 14:57
PROVIDERS: ATTEND Surgery
DX: E04.2 Nontoxic multinodular goiter (principal)
CPT/HCPCS: 36415; 84439; 84443; 84481